=== PATIENT | male | born 2000 | race Caucasian/White ===

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

== ENCOUNTER 2022-03-17 10:59 | Emergency (ER) | payer SELFPAY ==
--- OUTSIDE RECORDS SUMMARY | 2022-03-17 11:03 | XMS REPORT | Continuity of Care Document ---
:2000 Author Organization [facility] Address [address] [place] [address] [address]. [address] [place] [address] Care Team Providers Name Role Phone PCP, PATIENT DOES NOT HAVE A Primary Care Physician Unavaila KATARZYNA Saravia Attending Clinician Unavailable OCTAVIO CAMERON Attending Clinician Unavailable Problems This patient has no known problems. Allergies, Adverse Reactions, Alerts Allergy Allergy Status Severity Reaction(s) Onset Inactive Treating Comm ents Source Name Type Date Date Clinician NO KNOWN Drug [facility]ations This patient has no known medications. Procedures This patient has no known procedures. Encounters Start End Encounter Admission Attending Care Care Encounter Source Date/Time Date/Time Type Type Clinicians Facility Department ID 2020-09-23 2020-09-23 [id number] [facility] 15:59:29 23:59:00 [facility] 2020-08-29 2020-08-29 [facility] [id number] [facility] 08:00:00 08:00:00 [facility] 2020-08-07 2020-08-07 [id number] [facility] 00:00:00 00:00:00 OCTAVIO [facility] 2020-08-01 2020-08-01 [facility] [id number] Univers 08:15:00 08:15:00 [facility] Results This patient has no known results.
[2022-03-17] MEDS ORDERED: NA CHLORIDE 0.9% 1,000 ML ONE ×2 (11:19→12:10)
[2022-03-17 11:37] LABS: Urine Blood 3+ (Negative); Urine Glucose Negative (Negative); Urine Protein 1+ (Negative); Urine Specific Gravity 1.025 (1.005-1.030); Urine pH 6.5 (5.0-7.0)
[2022-03-17 11:42] LABS: Absolute Lymphocytes (CBC) 1.1 K/uL (0.7-4.9); Hematocrit 46.4 % (39.6-49.0); Lymphocytes % 28.5 % (15.3-44.8); MCV 87.7 fL (80-100); MPV 9.2 fL (7.6-11.3)
--- NOTE | 2022-03-17 11:54 | RAD REPORT ---
EXAM DESCRIPTION: CT - Stone Protocol - 03/17/2022 11:43 am CLINICAL HISTORY: right flank pain COMPARISON: No comparisons TECHNIQUE: Axial 3 mm thick images were obtained without oral or IV contrast. The ocyat-po-fyab span s the entirety of the system including uppermost abdomen and lung bases. All CT scans are performed using dose optimization technique as appropriate and may include automated exposure control or mA/KV adjustment according to patient size. FINDINGS: There is slight fullness of the right ureter which is difficult to fall along its entire c ourse. In the lateral right pelvis there is a 3 millimeter calcification present. This is in the appr oximate location of the ureter. Given the right flank pain history, finding is suspicious for a right ureteral calculus. Patient has no other phleboliths. No left-sided hydronephrosis. No calculi in eit her kidney. No suspicious renal masses. Isodense masses and pyelonephritis are not excluded on a ston e protocol CT scan. No significant adrenal finding. No urinary bladder suspicious finding. Imaged portions of the liver, spleen and pancreas show no suspicious findings on non-contrast imaging . No gallbladder or biliary tree abnormality identified. No suspicious bowel findings. Appendix is normal. No hernia, mass or bulky lymphadenopathy noted. No free air, free fluid or inflammatory stranding. No significant bony abnormality. IMPRESSION: A 3 millimeter calcification is seen in the lateral aspect of the right pelvis in the ex pected location of the right ureter which cannot be followed along its entire course. A right ureteral calcification is suspected given the right flank pain history. Phlebolith is possibl e as well though no other phlebolith is present in this patient. Isodense masses and pyelonephritis are not excluded on stone protocol technique.
[2022-03-17 12:02] LABS: Calcium Oxalate Crystals- Ur Few /HPF (None Seen); Urine Mucus 4+ /HPF (None Seen); Urine RBC >50 /HPF (None Seen)
[2022-03-17 12:04] LABS: Albumin 4.3 g/dL (3.4-5.0); Potassium 3.7 mmol/L (3.5-5.1); Protein, Total 7.7 g/dL (6.4-8.2)
[2022-03-17] MEDS ORDERED: TAMSULOSIN 0.4 MG SR CAP ONE (12:10)
[2022-03-17] MEDS ORDERED: CEFTRIAXONE 1000 MG/VIAL ONE (12:19)
[2022-03-17] MEDS ORDERED: NA CHLORIDE 0.9% 50 ML IV ONE (12:19)
--- NOTE | 2022-03-17 14:04 | EDPHYS ---
Physician Documentation [facility] Name: Brenton Chan Age: 21 yrs Sex: Male : 2000 Arrival Date: 03/17/2022 Time: 11:04 Bed 18 Private MD: ED Physician Johnny Bey HPI: 03/17 11:13 This 21 yrs old Male presents to ER via Ambulatory with complaints of Back Pain. jmm 11:13 The patient presents with pain that is acute. Onset: The symptoms/episode jmm began/occurred acutely, this morning. The pain radiates to the abdomen. Associated signs and symptoms: Pertinent positives: nausea, vomiting. The problem was sustained from unknown cause. Modifying factors: The patient symptoms are alleviated by nothing, the patient symptoms are aggravated by nothing. The patient has not experienced similar symptoms in the past. This is a 21 year old male with no chronic medical condions that presents to the ED with complaints of right sided back pain beginning earlier this morning. Patient states pain intensified, radiating into his abdomen. Patient states then developing nausea, vomited 4 times. Denies history of similar episode. . Historical: - Allergies: 11:10 No Known Allergies; mb9 - Home Meds: 11:10 None [Active]; mb9 - PMHx: 11:10 None; mb9 - PSHx: 11:10 right hand stents; mb9 - Immunization history:: Client reports having NOT received the Covid vaccine. Flu vaccine is not up to date. - Social history:: Smoking status: Patient denies any tobacco usage or history of. ROS: 11:13 Constitutional: Negative for fever, chills, and weight loss, Cardiovascular: Negative jmm for chest pain, palpitations, and edema, Respiratory: Negative for shortness of breath, cough, wheezing, and pleuritic chest pain. 11:13 Abdomen/GI: Positive for nausea and vomiting. 11:13 Back: Positive for pain at rest, radiated pain. 11:13 All other systems are negative. Exam: 11:13 Constitutional: This is a well developed, well nourished patient who is awake, alert, jmm and in no acute distress. Head/Face: atraumatic. Eyes: EOMI, no conjunctival erythema appreciated ENT: Moist Mucus Membranes Neck: Trachea midline, Supple Chest/axilla: Normal chest wall appearance and motion. Cardiovascular: Regular rate and rhythm. No edema appreciated Respiratory: Normal respirations, no respiratory distress appreciated Abdomen/GI: Non distended 11:13 Back: CVA tenderness, that is mild, is noted on the right. 11:13 Neuro: Orientation: is normal, Mentation: is normal, Memory: is normal. 11:13 Psych: Behavior/mood is pleasant, cooperative. Vital Signs: 11:11 BP 120 / 88; Pulse 68; Resp 18; Temp 98.2; Pulse Ox 100% on R/A; Weight 56.7 kg (R); mb9 Height 5 ft. 9 in. (175.26 cm) (R); Pain 5/10; 12:24 BP 117 / 72; Pulse 64; Resp 16; Pulse Ox 100% ; Pain 4/10; mb8 13:41 BP 110 / 42; Pulse 65; Resp 16; Pulse Ox 98% on R/A; Pain 3/10; mb8 11:11 Body Mass Index 18.46 (56.70 kg, 175.26 cm) 9 MDM: 11:21 Patient medically screened. [facility] 13:42 Data reviewed: vital signs, nurses notes. [facility] 14:01 Counseling: I had a detailed discussion with the patient and/or guardian regarding: the [facility] historical points, exam findings, and any diagnostic results supporting the discharge/admit diagnosis, lab results, radiology results, the need for outpatient follow up, to return to the emergency department if symptoms worsen or persist or if there are any questions or concerns that arise at home. ED course: Pain alleviated in the ED. No signs of sepsis. Will treat with oral abx due to uti. Advised to follow up with urology for further evaluation. Patient understood and agrees with the plan of care. . 03/17 11:13 Order name: CBC with Diff; Complete Time: 11:53 [facility] 03/17 11:13 Order name: CMP; Complete Time: 12:11 [facility] 03/17 11:13 Order name: Lipase; Complete Time: 12:11 [facility] 03/17 11:37 Order name: Urine Dipstick-Ancillary; Complete Time: 11:37 [facility] 03/17 11:37 Order name: Urine Microscopic Only; Complete Time: 12:14 [facility] 03/17 11:37 Order name: Urine Culture [facility] 03/17 11:13 Order name: IV Saline Lock; Complete Time: 11:33 [facility] 03/17 11:13 Order name: Labs collected and sent; Complete Time: 11:33 [facility] 03/17 11:13 Order name: CT Stone Protocol; Complete Time: 11:56 [facility] 03/17 11:13 Order name: Urine Dipstick-Ancillary (obtain specimen); Complete Time: 11:34 [facility] Administered Medications: 11:33 Drug: NS 0.9% 1000 ml Route: IV; Rate: 1 bolus; Site: right antecubital; mb8 12:03 Follow up: IV Status: Completed infusion mb8 12:17 Drug: Flomax (tamsulosin) 0.4 mg Route: PO; mb8 13:41 Follow up: Response: No adverse reaction 8 12:17 Drug: NS 0.9% 1000 ml Route: IV; Rate: 1 bolus; Site: right antecubital; mb8 13:41 Follow up: IV Status: Completed infusion mb8 12:22 Drug: Rocephin (cefTRIAXone) 1 grams Route: IV; Rate: calculated rate; Site: right mb8 antecubital; 13:00 Follow up: IV Status: Completed infusion mb8 Disposition: 11:46 Co-signature as Attending Physician, Johnny MON was immediately available on-site ms3 in the Emergency Department for consultation in the care of the patient. Disposition Summary: 03/17/22 14:03 Discharge Ordered Location: Home [facility] Condition: Stable [facility] Diagnosis - Calculus of kidney with calculus of ureter jm - UTI/ Urinary tract infection, site not specified [facility] Followup: [facility] - With: Franky Beaulieu MD - When: 2 - 3 days - Reason: Recheck today's complaints, Continuance of care, Re-evaluation by your physician Discharge Instructions: - Discharge Summary Sheet [facility] - Kidney Stones [facility] - Urinary Tract Infection, Adult [facility] - Dietary Guidelines to Help Prevent Kidney Stones [facility] Forms: - Medication Reconciliation Form [facility] - Thank You Letter [facility] - Antibiotic Education [facility] - Prescription Opioid Use [facility] Prescriptions: - Flomax 0.4 mg Oral capsule - take 1 capsule by ORAL route once daily for 10 days 1/2 hour following the same [facility] meal each day; 10 capsule; Refills: 0, Product Selection Permitted - ondansetron 4 mg Oral tablet,disintegrating - take 1 tablet by ORAL route every 4-6 hours As needed; 20 tablet; Refills: 0, [facility] Product Selection Permitted - Diclofenac Sodium 75 mg Oral Tablet Sustained Release - take 1 tablet by ORAL route 2 times per day; 30 tablet; Refills: 0, Product [facility] Selection Permitted - Cephalexin 500 mg Oral Capsule - take 1 capsule by ORAL route every 8 hours for 10 days; 30 capsule; Refills: 0, [facility] Product Selection Permitted Signatures: Dispatcher [employer] Dominic Benavides PA PA Johnny Yates DO DO ms3 Jeramy Paris, RN RN mb8 Sandy Jnug RN RN mb9
--- NOTE | 2022-03-17 14:04 | ER ---
Nurse's Notes [facility] Name: Brenton Chan Age: 21 yrs Sex: Male : 2000 Arrival Date: 03/17/2022 Time: 11:04 Bed 18 Private MD: Diagnosis: Calculus of kidney with calculus of ureter;UTI/ Urinary tract infection, site not specified Presentation: 03/17 11:07 Chief complaint: Patient states: right lower back started hurting this morning. "I mb9 layed on a heating pad and got up because i felt like i was going to throw up. I started shaking real bad. My lower stomach hurts". Coronavirus screen: Client denies travel out of the [place] in the last 14 days. Ebola Screen: No symptoms or risks identified at this time. Initial Sepsis Screen: Does the patient meet any 2 criteria? No. Patient's initial sepsis screen is negative. Does the patient have a suspected source of infection? No. Patient's initial sepsis screen is negative. Risk Assessment: Do you want to hurt yourself or someone else? Patient reports no desire to harm self or others. Onset of symptoms was March 17, 2022. 11:07 Method Of Arrival: Ambulatory mb9 11:12 Acuity: HARVEY 3 mb9 Triage Assessment: 11:12 General: Appears in no apparent distress. Behavior is calm, cooperative, appropriate mb9 for age. Pain: Complains of pain in right lower back Pain currently is 5 out of 10 on a pain scale. Quality of pain is described as aching. EENT: No signs and/or symptoms were reported regarding the EENT system. Neuro: Level of Consciousness is awake, alert, obeys commands, Oriented to person, place, time, situation, Appropriate for age. Cardiovascular: Rhythm is regular. Respiratory: Airway is patent. GI: Abdomen is flat, Reports lower abdominal pain, nausea. : Denies burning with urination. Derm: Skin is pink, warm \\T\\ dry. Musculoskeletal: Range of motion: intact in all extremities. Historical: - Allergies: 11:10 No Known Allergies; mb9 - Home Meds: 11:10 None [Active]; mb9 - PMHx: 11:10 None; mb9 - PSHx: 11:10 right hand stents; mb9 - Immunization history:: Client reports having NOT received the Covid vaccine. Flu vaccine is not up to date. - Social history:: Smoking status: Patient denies any tobacco usage or history of. Screenin:18 Abuse screen: Denies threats or abuse. Denies injuries from another. Nutritional mb8 screening: No deficits noted. Tuberculosis screening: No symptoms or risk factors identified. Fall Risk None identified. Assessment: 11:18 Neuro: No deficits noted. GI: Reports Right flank pain since this morning. GI: Reports mb8 nausea, Patient currently denies vomiting. :. 12:24 Reassessment: Patient and/or family updated on plan of care and expected duration. Pain mb8 level reassessed. Patient is alert, oriented x 3, equal unlabored respirations, skin warm/dry/pink. Vital Signs: 11:11 BP 120 / 88; Pulse 68; Resp 18; Temp 98.2; Pulse Ox 100% on R/A; Weight 56.7 kg (R); mb9 Height 5 ft. 9 in. (175.26 cm) (R); Pain 5/10; 12:24 BP 117 / 72; Pulse 64; Resp 16; Pulse Ox 100% ; Pain 4/10; mb8 13:41 BP 110 / 42; Pulse 65; Resp 16; Pulse Ox 98% on R/A; Pain 3/10; mb8 11:11 Body Mass Index 18.46 (56.70 kg, 175.26 cm) mb9 ED Course: 11:04 Patient arrived in ED. mr 11:04 Dominic Álvarez PA is PHCP. [facility] 11:04 Johnny Bey DO is Attending Physician. [facility] 11:12 Triage completed. mb9 11:12 Arm band placed on. mb9 11:19 Patient has correct armband on for positive identification. Placed in gown. Bed in low mb8 position. Call light in reach. Side rails up X2. Client placed on continuous cardiac and pulse oximetry monitoring. NIBP monitoring applied. 11:19 No provider procedures requiring assistance completed. mb8 11:29 Inserted saline lock: 20 gauge in right antecubital area, using aseptic technique. mb8 ,using aseptic technique. By KJ Blood collected. 11:33 Jeramy Paris, RN is Primary Nurse. mb8 11:39 Urine Culture Sent. em1 11:39 Urine Microscopic Only Sent. em1 11:44 CT Stone Protocol In Process Unspecified. EDMS 14:00 IV discontinued, intact, bleeding controlled, No redness/swelling at site. Pressure mb8 dressing applied. 14:02 Franky Beaulieu MD is Referral Physician. m Administered Medications: 11:33 Drug: NS 0.9% 1000 ml Route: IV; Rate: 1 bolus; Site: right antecubital; mb8 12:03 Follow up: IV Status: Completed infusion mb8 12:17 Drug: Flomax (tamsulosin) 0.4 mg Route: PO; mb8 13:41 Follow up: Response: No adverse reaction mb8 12:17 Drug: NS 0.9% 1000 ml Route: IV; Rate: 1 bolus; Site: right antecubital; mb8 13:41 Follow up: IV Status: Completed infusion mb8 12:22 Drug: Rocephin (cefTRIAXone) 1 grams Route: IV; Rate: calculated rate; Site: right mb8 antecubital; 13:00 Follow up: IV Status: Completed infusion mb8 Medication: 11:18 VIS not applicable for this client. mb8 Outcome: 14:03 Discharge ordered by . sujatha 14:10 Discharged to home ambulatory, with family. mb8 14:10 Condition: stable 14:10 Discharge instructions given to patient, family, Instructed on discharge instructions, follow up and referral plans. medication usage, urine strainer, Demonstrated understanding of instructions, follow-up care, medications, strainer Prescriptions given X 4. 14:12 Patient left the ED. mb8 Signatures: Dispatcher [employer] EDMS Dominic Álvarez PA PA jmm Rivera, Mary Francisco Tellez em1 Jeramy Paris, RN RN mb8 Sandy Jung RN RN mb9 Corrections: (The following items were deleted from the chart) 11:19 11:12 GI: Abdomen is flat, Reports lower abdominal pain, mb9 mb9 13:43 13:41 Pulse 65bpm; Resp 16bpm; Pulse Ox 98% RA; Pain 3/10; mb8 mb8
[2022-03-17 14:29] VITALS: TEMP 98.2
[2022-03-17 14:32] VITALS: BP 110/42; O2SAT 98
== END 2022-03-17 14:12 | disposition home or self-care (01) ==
LOC: ER 10:59
DX: N20.2 Calculus of kidney with calculus of ureter (principal); N39.0 Urinary tract infection, site not specified
CPT/HCPCS: 36415; 74176; 76377; 80053; 81003; 81015; 83690; 85025; 87086; 87088; 96361; 96365; 99284; J7030

== ENCOUNTER 2022-03-28 18:47 | Emergency (ER) | payer SELFPAY ==
--- OUTSIDE RECORDS SUMMARY | 2022-03-28 18:49 | XMS REPORT | Continuity of Care Document ---
:2000 Author Organization [facility] Address [address] [place] [address] [address]. [address] [place] [address] Care Team Providers Name Role Phone PCP, PATIENT DOES NOT HAVE A Primary Care Physician Unavaila KATARZYNA Saravia Attending Clinician Unavailable OCTAVIO CAMERON Attending Clinician Unavailable Problems This patient has no known problems. Allergies, Adverse Reactions, Alerts Allergy Allergy Status Severity Reaction(s) Onset Inactive Treating Comm ents Source Name Type Date Date Clinician NO KNOWN Drug [facility] Medications This patient has no known medications. Procedures This patient has no known procedures. Encounters Start End Encounter Admission Attending Care Care Encounter Source Date/Time Date/Time Type Type Clinicians Facility Department ID 2020-09-23 2020-09-23 [facility] [id number] [facility] 15:59:29 23:59:00 [facility] 2020-08-29 2020-08-29 [facility] [id number] [facility] 08:00:00 08:00:00 [facility] 2020-08-07 2020-08-07 [facility] [place] [id number] [facility] 00:00:00 00:00:00 OCTAVIO [facility] 2020-08-01 2020-08-01 [facility] [id number] [facility] 08:15:00 08:15:00 [facility] Results This patient has no known results.
[2022-03-28] MEDS ORDERED: Ringers Lactate 1,000 ML IV ONE (20:07)
[2022-03-28] MEDS ORDERED: KETOROLAC 30 MG/ML INJ ONE (20:07)
[2022-03-28] MEDS ORDERED: ONDANSETRON 4 MG/2 ML VIAL ONE (20:07)
--- NOTE | 2022-03-28 20:23 | RAD REPORT ---
EXAM DESCRIPTION: CTAbdomen Pelvis Wo Contrast - 03/28/2022 8:15 pm CLINICAL HISTORY: Right flank pain COMPARISON: <Comparisons> TECHNIQUE: CT of the abdomen and pelvis was performed. All CT scans are performed using dose optimization technique as appropriate and may include automated exposure control or mA/KV adjustment according to patient size. FINDINGS: Lower chest: No acute abnormality. Liver: No acute abnormality or suspicious lesions. Biliary: No biliary ductal dilatation. Stomach: No significant focal abnormality. Duodenum: No significant focal abnormality. Pancreas: No significant abnormality. Spleen: No significant abnormality. Adrenal: No suspicious lesions. Kidney/ureter: Mild right-sided hydroureteronephrosis secondary to a 3 millimeters stone in the right distal ureter. No other renal calculi. Retroperitoneum: No retroperitoneal adenopathy. Vascular: No aneurysm. Bowel: No significant focal abnormality. Peritoneum: No ascites or free air. Bladder: Grossly unremarkable. Reproductive: No adnexal masses. Bones: No acute fracture. Other: n/a IMPRESSION: Mild right-sided hydroureteronephrosis secondary to a 3 mm stone in the right distal ure ter.
[2022-03-28 20:52] LABS: Absolute Lymphocytes (CBC) 0.7 K/uL (0.7-4.9); Hematocrit 44.4 % (39.6-49.0); MCV 89.6 fL (80-100); MPV 9.2 fL (7.6-11.3); RBC Red Blood Cell Count 4.96 M/uL (4.33-5.43)
[2022-03-28 23:21] LABS: Urine Blood Trace-lysed (Negative); Urine Glucose Negative (Negative); Urine Protein Negative (Negative)
--- NOTE | 2022-03-29 00:09 | EDPHYS ---
Physician Documentation [facility] Name: Brenton Chan Age: 21 yrs Sex: Male : 2000 Arrival Date: 03/28/2022 Time: 18:47 Bed 15 Private MD: ED Physician Johnny Bey HPI: 03/29 00:08 This 21 yrs old Male presents to ER via Ambulatory with complaints of Vomiting - kidney ms3 stones. 04:31 The patient complains of pain in the right mid back. The pain does not radiate. Onset: ms3 The symptoms/episode began/occurred today. Modifying factors: The symptoms are alleviated by nothing. the symptoms are aggravated by nothing. Associated signs and symptoms: Pertinent positives: nausea, vomiting, Pertinent negatives: fever. Severity of pain: At its worst the pain was severe in the emergency department the pain is unchanged. Patient states he was diagnosed with a 3 mm ureteral stone 2 weeks prior to arrival. Patient denies follow-up.. Historical: - Allergies: 03/28 19:36 No Known Allergies; kb3 - Home Meds: 19:36 None [Active]; kb3 - PMHx: 19:36 None; kb3 - PSHx: 19:36 right hand stents; kb3 - Immunization history:: Adult Immunizations up to date, Client reports having NOT received the Covid vaccine. Last tetanus immunization: up to date. - Social history:: Smoking status: Patient denies any tobacco usage or history of. ROS: 03/29 04:31 Constitutional: Negative for fever, and chills. Neck: Negative for injury, pain, and ms3 swelling, Cardiovascular: Negative for chest pain, and palpitations. Respiratory: Negative for shortness of breath, cough, wheezing, and pleuritic chest pain. MS/Extremity: Negative for injury and deformity, Skin: Negative for injury, rash, and discoloration, Neuro: Negative for headache, weakness, numbness, tingling. Abdomen/GI: Positive for nausea and vomiting. All other systems are negative. Exam: 04:31 Constitutional: This is a well developed, well nourished patient who is awake, alert, ms3 and in no acute distress. Head/Face: Normocephalic, atraumatic. Neck: Trachea midline, no cervical lymphadenopathy. Supple, full range of motion without nuchal rigidity, or vertebral point tenderness. No Meningismus. Chest/axilla: Normal chest wall appearance and motion. Nontender with no deformity. Cardiovascular: Regular rate and rhythm with a normal S1 and S2. No gallops, murmurs, or rubs. Normal PMI, no JVD. No pulse deficits. Respiratory: Lungs have equal breath sounds bilaterally, clear to auscultation and percussion. No rales, rhonchi or wheezes noted. No increased work of breathing, no retractions or nasal flaring. Abdomen/GI: Soft, non-tender, with normal bowel sounds. No distension or tympany. No guarding or rebound. No evidence of tenderness throughout. Skin: Warm, dry with normal turgor. Normal color with no rashes, no lesions, and no evidence of cellulitis. MS/ Extremity: Pulses equal, no cyanosis. Neurovascular intact. Full, normal range of motion. Vital Signs: 03/28 19:33 BP 131 / 75; Pulse 65; Resp 20; Temp 98.8; Pulse Ox 100% ; Weight 56.7 kg; Height 5 ft. kb3 9 in. (175.26 cm); Pain 6/10; 21:29 BP 113 / 64; Pulse 77; Resp 17; Pulse Ox 100% on R/A; ke1 21:30 Pain 1/10; ke1 03/29 00:03 BP 110 / 59; Pulse 68; Resp 17; Pulse Ox 99% ; ke1 03/28 19:33 Body Mass Index 18.46 (56.70 kg, 175.26 cm) kb3 MDM: 03/28 19:45 Patient medically screened. ms3 03/29 04:31 Data reviewed: vital signs, nurses notes, lab test result(s), radiologic studies, and ms3 as a result, I will discharge patient. Counseling: I had a detailed discussion with the patient and/or guardian regarding: the historical points, exam findings, and any diagnostic results supporting the discharge/admit diagnosis, lab results, radiology results, the need for outpatient follow up, to return to the emergency department if symptoms worsen or persist or if there are any questions or concerns that arise at home. Special discussion: I discussed with the patient/guardian in detail that at this point there is no indication for admission to the hospital. It is understood, however, that if the symptoms persist or worsen the patient needs to return immediately for re-evaluation. ED course: Discussed labs and imaging with patient and his father. Patient to follow-up with Dr. Beaulieu in 2 to 3 days. Patient understands agrees with plan. All questions were answered. Return precautions discussed include worsening symptoms, or any other concerns. 03/28 19:50 Order name: CBC with Diff; Complete Time: 21:19 ms3 03/28 19:50 Order name: Urine Microscopic Only ms3 03/28 19:50 Order name: CT Abd/Pelvis - Without Contrast; Complete Time: 20:41 ms3 03/28 23:21 Order name: Urine Dipstick-Ancillary; Complete Time: 00:06 EDMS 03/28 19:50 Order name: IV Saline Lock; Complete Time: 23:10 ms3 03/28 19:50 Order name: Labs collected and sent; Complete Time: 23:10 ms3 03/28 19:50 Order name: Urine Dipstick-Ancillary (obtain specimen); Complete Time: 23:57 ms3 Administered Medications: 03/28 20:46 Drug: Zofran (Ondansetron) 4 mg Route: IVP; Site: right antecubital; ke1 21:10 Follow up: Response: No adverse reaction; Marked relief of symptoms ke1 20:46 Drug: Ketorolac 15 mg Route: IVP; Site: right antecubital; ke1 21:30 Follow up: Pain 1/10 Adult; Response: Marked relief of symptoms; Pain is decreased ke1 20:46 Drug: Lactated Ringers Solution 1000 ml Route: IV; Rate: 1000 bolus; Site: right ke1 antecubital; 21:15 Follow up: IV Status: Completed infusion ke1 Disposition Summary: 03/29/22 00:08 Discharge Ordered Location: Home ms3 Condition: Stable ms3 Diagnosis - Calculus of kidney with calculus of ureter ms3 - Right flank pain ms3 Followup: ms3 - With: Franky Beaulieu MD - When: 2 - 3 days - Reason: Recheck today's complaints Discharge Instructions: - Discharge Summary Sheet ms3 - Kidney Stones ms3 Forms: - Medication Reconciliation Form ms3 - Thank You Letter ms3 - Antibiotic Education ms3 - Prescription Opioid Use ms3 Prescriptions: - tamsulosin 0.4 mg Oral capsule - take 1 capsule by ORAL route once daily 1/2 hour following the same meal each ms3 day; 20 capsule; Refills: 0, Product Selection Permitted - Zofran 4 mg Oral Tablet - take 1 tablet by ORAL route every 12 hours As needed; 20 tablet; Refills: 0, ms3 Product Selection Permitted - Tylenol-Codeine #3 300 mg-30 mg Oral - take 1 tablet by ORAL route every 8 hours; 9 tablet; Refills: 0, Product ms3 Selection Permitted Signatures: Dispatcher [employer] EDJohnny Basurto DO DO ms3 Ebony Aponte, RN RN ke1 Mireille Candelaria RN RN kb3
--- NOTE | 2022-03-29 00:09 | ER ---
Nurse's Notes [facility] Name: Brenton Chan Age: 21 yrs Sex: Male : 2000 Arrival Date: 03/28/2022 Time: 18:47 Bed 15 Private MD: Diagnosis: Calculus of kidney with calculus of ureter;Right flank pain Presentation: 03/28 19:33 Chief complaint: Patient states: Pt was diagnosed with kidney stones on the right 2 kb3 weeks ago and reports he has not passed any stones, continues to have pain, and began vomiting this morning. Coronavirus screen: Vaccine status: Patient reports being unvaccinated. Client denies travel out of the [place] in the last 14 days. Ebola Screen: Patient negative for fever greater than or equal to 101.5 degrees Fahrenheit, and additional compatible Ebola Virus Disease symptoms Patient denies exposure to infectious person. Patient denies travel to an Ebola-affected area in the 21 days before illness onset. Initial Sepsis Screen: Does the patient meet any 2 criteria? No. Patient's initial sepsis screen is negative. Does the patient have a suspected source of infection? No. Patient's initial sepsis screen is negative. Risk Assessment: Do you want to hurt yourself or someone else? Patient reports no desire to harm self or others. Onset of symptoms was March 17, 2022. 19:33 Method Of Arrival: Ambulatory [facility] 19:33 Acuity: HARVEY 3 kb3 Triage Assessment: 19:36 General: Appears in no apparent distress. Behavior is calm, cooperative. Pain: kb3 Complains of pain in right low back Pain does not radiate. Pain currently is 8 out of 10 on a pain scale. Quality of pain is described as burning, aching, sharp. GI: Reports nausea, vomiting. Historical: - Allergies: 19:36 No Known Allergies; kb3 - Home Meds: 19:36 None [Active]; kb3 - PMHx: 19:36 None; kb3 - PSHx: 19:36 right hand stents; kb3 - Immunization history:: Adult Immunizations up to date, Client reports having NOT received the Covid vaccine. Last tetanus immunization: up to date. - Social history:: Smoking status: Patient denies any tobacco usage or history of. Screenin:46 Abuse screen: Denies threats or abuse. Nutritional screening: No deficits noted. ke1 Tuberculosis screening: No symptoms or risk factors identified. Fall Risk None identified. Assessment: 21:30 Reassessment: Patient states feeling better. Patient states symptoms have improved. ke1 21:30 GI: Abdomen is flat, non-distended. ke1 Vital Signs: 19:33 BP 131 / 75; Pulse 65; Resp 20; Temp 98.8; Pulse Ox 100% ; Weight 56.7 kg; Height 5 ft. kb3 9 in. (175.26 cm); Pain 6/10; 21:29 BP 113 / 64; Pulse 77; Resp 17; Pulse Ox 100% on R/A; ke1 21:30 Pain 1/10; ke1 03/29 00:03 BP 110 / 59; Pulse 68; Resp 17; Pulse Ox 99% ; ke1 03/28 19:33 Body Mass Index 18.46 (56.70 kg, 175.26 cm) kb3 ED Course: 03/28 18:47 Patient arrived in ED. as 19:08 Johnny Bey DO is Attending Physician. ms3 19:36 Triage completed. kb3 19:36 Arm band placed on left wrist. kb3 20:01 Ebony Aponte, RN is Primary Nurse. ke1 20:17 CT Abd/Pelvis - Without Contrast In Process Unspecified. EDMS 20:30 Missed attempt(s): 20 gauge in right forearm. ke1 20:45 Inserted saline lock: 20 gauge in right antecubital area, using aseptic technique. ke1 20:47 Bed in low position. Call light in reach. Side rails up X2. Adult w/ patient. ke1 23:57 Urine Microscopic Only Sent. ke1 03/29 00:07 Franky Beaulieu MD is Referral Physician. ms3 00:20 No provider procedures requiring assistance completed. IV discontinued. ke1 Administered Medications: 03/28 20:46 Drug: Zofran (Ondansetron) 4 mg Route: IVP; Site: right antecubital; ke1 21:10 Follow up: Response: No adverse reaction; Marked relief of symptoms ke1 20:46 Drug: Ketorolac 15 mg Route: IVP; Site: right antecubital; ke1 21:30 Follow up: Pain 05/26 Adult; Response: Marked relief of symptoms; Pain is decreased ke1 20:46 Drug: Lactated Ringers Solution 1000 ml Route: IV; Rate: 1000 bolus; Site: right ke1 antecubital; 21:15 Follow up: IV Status: Completed infusion ke1 Medication: 03/29 00:21 VIS not applicable for this client. ke1 Outcome: 00:08 Discharge ordered by ms3 00:21 Discharged to home ambulatory. ke1 00:21 Condition: good 00:21 Discharge instructions given to patient, significant other. 00:22 Patient left the ED. ke1 Signatures: Dispatcher [employer] EDMS Yuko Tellez Marcus, DO DO ms3 Ebony Aponte, RN RN ke1 Mireille Candelaria, JOSE GUADALUPE RN kb3
[2022-03-29 01:08] VITALS: TEMP 98.8
[2022-03-29 01:12] VITALS: BP 110/59; O2SAT 99
[2022-03-29 01:38] LABS: Urine Bacteria <20 /HPF (<20); Urine Mucus Slight /HPF (None Seen); Urine RBC <5 /HPF (None Seen)
== END 2022-03-29 00:22 | disposition home or self-care (01) ==
LOC: ER 18:47
DX: N20.2 Calculus of kidney with calculus of ureter (principal)
CPT/HCPCS: 36415; 74176; 81003; 81015; 85025; 96374; 96375; 99284; J2405; J7120